=== PATIENT | male | born 1955 | race African-American/Black ===

== ENCOUNTER 2017-11-26 13:49 | Emergency (ER) | END 2017-11-26 15:53 | disposition home or self-care (01) ==

== ENCOUNTER 2018-11-21 15:37 | Emergency (ER) | payer OTHER ==
[~2018-11-21] VITALS: Ht 177.8 cm; Wt 84.4 kg
[~2018-11-21 15:37] MED LIST: HYDR-4011 PO; IBUP800T48 PO
[2018-11-21 15:38] VITALS: Ht 177.8 cm; Wt 84.4 kg
[2018-11-21] MEDS ORDERED: NITROGLYCERIN 2% 1 GM OINT PKT TD STA (16:57)
[2018-11-21] MEDS ORDERED: ASPIRIN 81 MG TAB PO STA (16:57)
[2018-11-21] MEDS ORDERED: NITROGLYCERIN (SL) 0.4 MG TAB SL PRN (17:00)
--- NOTE | 2018-11-21 18:12 | ERD ---
ER Documentation Chief Complaint Chief Complaint SUDDEN ONSET OF CHEST PAIN WITH SOB HPI Patient is a 63-year-old male with no medical problems who presents with chest pain shortness of breath. He said that it was a sudden onset of chest tightness and dizziness which he has never had before. He called his primary doctor who sent him to the emergency department for evaluation. He said that he has never had an OH. The pain lasted 1 hour and is now completely gone. The pain started 2 hours ago. Upon review of old medical records the patient one previous visit to the ER in 2018. His primary doctor is Dr. Azael Ford. ROS All systems reviewed and are negative except as per history of present illness. Medications Home Meds Active Scripts Hydrocodone/Acetaminophen ([place] 5-325 Tablet) 1 Each Tablet, 1 TAB PO Q6H PRN for PAIN, #12 TAB Prov:SONY GORE MD 11/26/17 Ibuprofen* (Motrin*) 800 Mg Tab, 800 MG PO Q8 PRN for PAIN AND OR ELEVATED TEMP, #15 TAB Prov:SONY GORE MD 11/26/17 Allergies Allergies: Coded Allergies: No Known Allergy (Unverified , 11/26/17) PMhx/Soc History of Surgery: Yes (hernia) Anesthesia Reaction: No Hx Neurological Disorder: No Hx Respiratory Disorders: No Hx Cardiac Disorders: No Hx Psychiatric Problems: No Hx Miscellaneous Medical Probl: No Hx Alcohol Use: No Hx Substance Use: No Hx Tobacco Use: No Smoking Status: Never smoker FmHx Family History: No coronary disease Physical Exam Vitals Vital Signs Date Temp Pulse Resp B/P (MAP) Pulse Ox O2 O2 Flow FiO2 Time Delivery Rate 11/21/18 97.8 77 20 156/103 99 17:13 (120) 11/21/18 97.8 73 20 194/91 99 15:38 (125) Physical Exam Const: No acute distress Head: Atraumatic Eyes: Normal Conjunctiva ENT: Normal External Ears, Nose and Mouth. Neck: Full range of motion. No meningismus. Resp: Clear to auscultation bilaterally Cardio: Regular rate and rhythm, no murmurs Abd: Soft, non tender, non distended. Normal bowel sounds Skin: No petechiae or rashes Back: No midline or flank tenderness Ext: No cyanosis, or edema Neur: Awake and alert Psych: Normal Mood and Affect Result Diagram: 11/21/18 1714 11/21/18 1714 Results 24 hrs Laboratory Tests Test 11/21/18 17:14 White Blood Count 8.7 10^3/ul Red Blood Count 4.69 10^6/ul Hemoglobin 13.8 g/dl Hematocrit 42.5 % Mean Corpuscular Volume 90.6 fl Mean Corpuscular Hemoglobin 29.4 pg Mean Corpuscular Hemoglobin Concent 32.5 g/dl Red Cell Distribution Width 13.2 % Platelet Count 242 10^3/UL Mean Platelet Volume 9.6 fl Immature Granulocytes % 0.300 % Neutrophils % 66.6 % Lymphocytes % 22.8 % Monocytes % 8.2 % Eosinophils % 1.2 % Basophils % 0.9 % Nucleated Red Blood Cells % 0.0 /100WBC Immature Granulocytes # 0.030 10^3/ul Neutrophils # 5.8 10^3/ul Lymphocytes # 2.0 10^3/ul Monocytes # 0.7 10^3/ul Eosinophils # 0.1 10^3/ul Basophils # 0.1 10^3/ul Nucleated Red Blood Cells # 0.0 10^3/ul Sodium Level 140 mmol/L Potassium Level 4.1 mmol/L Chloride Level 105 mmol/L Carbon Dioxide Level 28 mmol/L Anion Gap 7 Blood Urea Nitrogen 11 mg/dl Creatinine 0.95 mg/dl Est Glomerular Filtrat Rate mL/min > 60 mL/min Glucose Level 94 mg/dl Calcium Level 9.3 mg/dl Troponin I < 0.012 ng/ml Current Medications Medications Dose Sig/Omar Start Time Status Last (Trade) Ordered Route PRN Stop Time Admin Dose Reason Admin Aspirin 162 mg ONCE STAT 11/21/18 DC 11/21/18 (Aspirin) PO 16:57 17:09 11/21/18 16:59 1 inch ONCE STAT 11/21/18 DC 11/21/18 Nitroglycerin TD 16:57 17:09 11/21/18 16:59 (Nitroglyceri n 2% Oint) 1 tab Q5M UP TO 3 11/21/18 Nitroglycerin DOSES PRN 17:00 SL .CHEST (Nitroglyceri PAIN n (Sl Tab) 0.4 Mg) Procedures/MDM EKG #1 read by me: Rate/Rhythm: Regular rate and rhythm at a rate of 74 Intervals: Normal Impression: No evidence of ischemia or arrhythmia EKG #2 read by me: Rate/Rhythm: Regular rate and rhythm at a rate of 68 Intervals: Normal Impression: No evidence of ischemia or arrhythmia X-ray negative per radiology. Patient is a 63-year-old male who presents with chest pain. He has no risk factors other than age and his pain is completely gone. Laboratory studies were normal. 2 EKGs were normal. Chest x-ray was negative. I did offer him admission overnight to rule out acute coronary syndrome but he refused and would like to go home at this time. I told him this is reasonable as long as he follows up closely with his primary doctor within 24 to 48 hours. I doubt pneumonia, pneumothorax, pulmonary embolism, or aortic dissection. The patient can return for any worsening symptoms. Departure Diagnosis: Primary Impression: Chest pain Chest pain type: unspecified Qualified Codes: R07.9 - Chest pain, unspecified Condition: Fair Patient Instructions: Chest Pain, Uncertain Cause Referrals: ELVIN CARRIZALES MD (PCP) Additional Instructions: Call your primary care doctor TOMORROW for an appointment during the next 1-2 days.See the doctor sooner or return here if your condition worsens before your appointment time. KAITLYNN HUSSEIN MD November 21, 2018 18:12
[2018-11-21 18:24] VITALS: BP 147/86; PULSE 71; RESP 20
== END 2018-11-21 19:00 | disposition home or self-care (01) ==
LOC: E/R 15:37
DX: R07.9 Chest pain, unspecified (principal)
CPT/HCPCS: 36415; 71045; 80048; 84484; 85025; Z7502; Z7610